=== PATIENT | female | born 1980 | race Caucasian/White ===

== ENCOUNTER 2018-12-10 06:38 | Inpatient (IN) | payer BC ==
[~2018-12-10] VITALS: Ht 152.4 cm; Wt 70.3 kg
[2018-12-10] MEDS ORDERED: ONDANSETRON HCL 4MG/2ML INJ IV STA (07:01)
[2018-12-10] MEDS ORDERED: MORPHINE SULFATE 4 MG/ML CPJ (NOT FOR IM USE) IV STA (07:01)
[2018-12-10 07:20] LABS: CHLORIDE 106 mEq/L (98-107)
[2018-12-10 07:22] LABS: BASOPHILS % 0.5 % (0.0-2.0); EOSINOPHILS % 0.5 % (0.0-5.0); HEMATOCRIT. 42.3 % (36.0-48.0); HEMOGLOBIN. 14.3 g/dL (12.0-16.0); INR 0.9; LYMPHOCYTES % 18.9 % (20.0-50.0); MEAN CORPUSCULAR HEMOGLOBIN 29.3 pg (28.0-32.0); MEAN CORPUSCULAR VOLUME 86.4 fL (81.0-99.0); MEAN PLATELET VOLUME 8.1 fl (7.4-10.4); NEUTROPHILS % 75.1 % (40.0-76.0); PLATELET 339 x1000/uL (130-400); PROTHROMBIN TIME 9.5 sec (9.6-11.0); RED BLOOD CELL COUNT 4.89 mill/uL (4.2-5.4); RED CELL DISTRIBUTION WIDTH 13.7 % (11.6-14.6)
[2018-12-10 07:26] LABS: HCG SCREEN NEGATIVE
[2018-12-10 07:33] LABS: CLARITY URINE CLEAR (CLEAR); COLOR URINE YELLOW (YELLOW); KETONES URINE TRACE (NEGATIVE); LEUKOCYTE ESTERASE URINE NEGATIVE (NEGATIVE); NITRITE URINE NEGATIVE (NEGATIVE); OCCULT BLOOD URINE TRACE (NEGATIVE); PROTEIN URINE NEGATIVE (NEGATIVE); SPECIFIC GRAVITY URINE 1.018 (1.005-1.030); UROBILINOGEN URINE 0.2 E.U./dL (0.2-1.0)
[2018-12-10] MEDS ORDERED: KETOROLAC 30MG/ML VIAL IV ONE (07:45)
[2018-12-10] MEDS ORDERED: MORPHINE SULFATE 4 MG/ML CPJ (NOT FOR IM USE) IV ONE (08:45)
[2018-12-10] MEDS ORDERED: METRONIDAZOLE 500 MG PREMIX 100 ML IV ONE (09:00)
[2018-12-10] MEDS ORDERED: LEVOFLOXACIN 750MG PREMIX 150 ML IV ONE (09:00)
[2018-12-10] MEDS ORDERED: DEXT 5%/0.45% NACL KCL 20MEQ/L 1,000 ML IV SCH (09:20)
[2018-12-10] MEDS ORDERED: BUPIVACAINE HCL 0.5% (5MG/ML) 50ML ONE (09:20)
[2018-12-10] MEDS ORDERED: SKIN ADHESIVE 0.7 GM EA TOP ONE (09:20)
[2018-12-10] MEDS ORDERED: ONDANSETRON HCL 4MG/2ML INJ IV PRN ×2 (09:30→13:30)
[2018-12-10] MEDS ORDERED: HYDROCODONE/ACETAMINOPHEN 5/325MG TABLET PO PRN (09:30)
[2018-12-10] MEDS ORDERED: MORPHINE SULFATE 4 MG/ML CPJ (NOT FOR IM USE) IV PRN (09:30)
[2018-12-10] MEDS ORDERED: MORPHINE SULFATE 2 MG/ML CPJ (NOT FOR IM USE) IV SCH (11:30)
[2018-12-10 12:00] VITALS: BP 109/58
[2018-12-10] MEDS ORDERED: FENTANYL CITRATE/PF 50MCG/ML 2ML VIAL ONE ×2 (12:37→12:59)
[2018-12-10] MEDS ORDERED: ROCURONIUM BROMIDE 10MG/ML VIAL 5ML IV ONE (12:37)
[2018-12-10] MEDS ORDERED: NEOSTIGMINE METHYLSULFATE 1MG/ML 10 ML VIAL ONE (12:38)
[2018-12-10] MEDS ORDERED: ONDANSETRON HCL 4MG/2ML INJ ONE (12:38)
[2018-12-10] MEDS ORDERED: CEFAZOLIN SODIUM 1000MG/VIAL ONE (12:38)
[2018-12-10] MEDS ORDERED: GLYCOPYRROLATE 0.2 MG/ML 2ML VIAL ONE (12:38)
[2018-12-10] MEDS ORDERED: MIDAZOLAM HCL 2 MG/2 ML VIAL ONE (12:38)
[2018-12-10] MEDS ORDERED: SODIUM CHLORIDE 0.9% 10ML VIAL ONE (12:38)
[2018-12-10] MEDS ORDERED: DEXAMETHASONE 4MG/ML 1ML VIAL ONE (12:38)
[2018-12-10] MEDS ORDERED: PROPOFOL 200MG/20ML VIAL IV ONE (12:38)
[2018-12-10] MEDS ORDERED: SUCCINYLCHOLINE CHLORIDE 200MG/10ML IV ONE (12:38)
[2018-12-10] MEDS ORDERED: METOCLOPRAMIDE HCL 10MG/2ML VIAL ONE (12:39)
[2018-12-10] MEDS ORDERED: PHENYLEPHRINE HCL 10 MG/ML 1ML (IV VIAL) IV ONE (12:39)
[2018-12-10] MEDS ORDERED: SODIUM CHLORIDE 0.9% 1,000 ML IV ONE (13:26)
[2018-12-10] MEDS ORDERED: HYDROMORPHONE HCL/PF 2MG/ML CPJ IV PRN (13:30)
[2018-12-10] MEDS ORDERED: MEPERIDINE HCL/PF 25MG/ML CPJ IV PRN ×2 (13:30)
[2018-12-10] MEDS ORDERED: MORPHINE SULFATE 2 MG/ML CPJ (NOT FOR IM USE) IV PRN (13:30)
[2018-12-10 16:00] VITALS: BP 110/70
[2018-12-10 16:05] VITALS: BP 119/57
[2018-12-10] MEDS: DEXT 5%/0.45% NACL KCL 20MEQ/L 1,000 ML IV SCH (16:52)
[2018-12-10 20:00] VITALS: BP 105/67
[2018-12-10] MEDS: HYDROCODONE/ACETAMINOPHEN 5/325MG TABLET PO PRN (22:12)
[2018-12-11] VITALS: BP 104/75
[2018-12-11] MEDS: HYDROCODONE/ACETAMINOPHEN 5/325MG TABLET PO PRN (02:22)
[2018-12-11 04:00] VITALS: BP 110/86
[2018-12-11] MEDS: DEXT 5%/0.45% NACL KCL 20MEQ/L 1,000 ML IV SCH ×2 (06:01→08:43)
[2018-12-11 06:55] LABS: BASOPHILS % 0.1 % (0.0-2.0); HEMATOCRIT. 35.7 % (36.0-48.0); LYMPHOCYTES % 9.4 % (20.0-50.0); MEAN CORPUSCULAR VOLUME 86.3 fL (81.0-99.0); MEAN PLATELET VOLUME 8.3 fl (7.4-10.4); MONOCYTES % 5.1 % (2.0-8.0); NEUTROPHILS % 85.4 % (40.0-76.0); PLATELET 273 x1000/uL (130-400); RED BLOOD CELL COUNT 4.14 mill/uL (4.2-5.4); RED CELL DISTRIBUTION WIDTH 13.6 % (11.6-14.6)
[2018-12-11 07:36] LABS: CHLORIDE 109 mEq/L (98-107)
[2018-12-11 08:00] VITALS: BP_SYST 112; BP_SYST 91; BP_DIAS 46; BP_DIAS 69
[2018-12-11 10:07] VITALS: BP 113/72
== END 2018-12-11 11:05 | disposition home or self-care (01) | DRG 343 ==
LOC: ER 07:19 → 6EST 09:07 → ENRESERV 09:19
PROVIDERS: ADMIT Internal Medicine; ATTEND Internal Medicine
PROC: 0DTJ4ZZ Resection of Appendix, Percutaneous Endoscopic Approach (ICD-10-PCS; principal; 2018-12-10)
DX: K35.80 Unspecified acute appendicitis (principal); F17.210 Nicotine dependence, cigarettes, uncomplicated; E87.6 Hypokalemia; K76.9 Liver disease, unspecified
CPT/HCPCS: 36415; 74176; 80048; 84703; 86850; 86900; 88304; 93970; 96374; 99285; J0330; J0690; J1100; J1885; J1956; J2175; J2250; J2270; J2370; J2405; J2704; J2710; J2765; J3010; J3490; J7030